=== PATIENT | female | born 1945 ===

== ENCOUNTER → 2016-10-14 | Outpatient (CLI) | payer OTHER ==
[2016-10-14 13:33] LABS: BASO ABS # 0.05 K/uL (0-0.2); COMPLETE YES; EOS % 8.8 %; HEMATOCRIT 42.8 % (37-47); IG% 0.2 %; LYMPH % 19.7 %; LYMPH ABS # 1.01 K/uL (1.2-3.4); MEAN CELL VOLUME 88.8 fL (80-100); MEAN CORPUSCULAR HEMOGLOBIN 30.3 pg (25-34); MEAN CORPUSCULAR HGB CONC 34.1 g/dl (32-36); MEAN PLATELET VOLUME 12.3 fL (7.4-10.4); MONO % 11.7 %; NEUT % 58.6 %; PLATELET COUNT 229 K/uL (130-400); RED BLOOD COUNT 4.82 M/uL (4.2-5.4); WHITE BLOOD COUNT 5.12 K/uL (4.8-10.8)
[2016-10-14 13:41] LABS: ALT/SGPT 21 U/L (12-78); AST/SGOT 18 U/L (15-37); BLOOD UREA NITROGEN 15 mg/dl (7-18); BUN/CREATININE RATIO 15.6 (10-20); CARBON DIOXIDE 25 mmol/L (21-32); CHLORIDE 106 mmol/L (98-107); CHOLESTEROL 235 mg/dl (0-200); CREATININE 0.94 mg/dl (0.60-1.20); GLUCOSE 92 mg/dl (70-99); POTASSIUM 3.6 mmol/L (3.5-5.1); SODIUM 142 mmol/L (136-145); TRIGLYCERIDES 175 mg/dl (0-150); VERY LOW DENSITY LIPOPROT CALC 35 mg/dl
[2016-10-14 13:53] LABS: CHOLESTEROL/HDL RATIO 4.4; HDL CHOLESTEROL 54 mg/dl; LDL CHOLESTEROL CALCULATED 146 mg/dl; PHOSPHORUS 2.9 mg/dl (2.5-4.9)
== END | disposition home or self-care (01) ==
LOC: C.LABMFLN 08:38
PROVIDERS: ATTEND Family Medicine
DX: E78.5 Hyperlipidemia, unspecified (principal); Z13.0 Encounter for screening for diseases of the blood and blood-forming organs and certain disorders involving the immune mechanism